=== PATIENT | male | born 1940 | race Caucasian/White ===

== ENCOUNTER → 2018-05-12 | Outpatient (CLI) | payer MEDICARE, OTHER ==
--- NOTE | 2018-05-12 13:06 | US ---
EXAMINATION TYPE: US venous doppler duplex LE DATE OF EXAM: 05/12/2018 12:52 PM COMPARISON: NONE CLINICAL HISTORY: R60.0 Localized edema. Intermittent pain left thigh. Bilateral leg edema SIDE PERFORMED: Bilateral TECHNIQUE: The lower extremity deep venous system is examined utilizing real time linear array sonog oliver with graded compression, doppler sonography and color-flow sonography. VESSELS IMAGED: External Iliac Vein (EIV) Common Femoral Vein Deep Femoral Vein Greater Saphenous Vein * Femoral Vein Popliteal Vein Small Saphenous Vein * Proximal Calf Veins (* superficial vessels) Grayscale, color doppler, spectral doppler imaging performed of the deep veins of the lower extremiti es. There is normal flow, compressibility, vascular waveforms. Right Leg: No evidence of DVT Left Leg: No evidence of DVT IMPRESSION: No sonographic evidence of deep venous thrombosis within either lower extremity.
== END ==
LOC: RADUSWWP 12:17
PROVIDERS: ATTEND Family Medicine
DX: R60.0 Localized edema (principal)
CPT/HCPCS: 93970

== ENCOUNTER → 2020-11-21 | Outpatient (CLI) | payer MEDICARE, OTHER ==
--- NOTE | 2020-11-21 16:16 | US ---
EXAMINATION TYPE: US kidneys/renal and bladder DATE OF EXAM: 11/21/2020 COMPARISON: NONE CLINICAL HISTORY: CKD Stage 4 N18.4. CKD, no symptoms EXAM MEASUREMENTS: Right Kidney: 9.9 x 4.8 x 6.1 cm Left Kidney: 10.2 x 4.4 x 5.3 cm Right Kidney: cortical thinning noted Left Kidney: cortical thinning noted Bladder: wnl Bilateral Jets seen: left . Right ureteral jet is not visualized. No hydronephrosis or shadowing renal calculi. IMPRESSION: 1. No hydronephrosis or shadowing renal calculi. 2. Bilateral cortical renal thinning. 3. Only left ureteral jet is visualized. The right ureteral jet is not visualized.
== END | disposition home or self-care (01) ==
LOC: RADUSWWP 11:45
PROVIDERS: ATTEND Internal Medicine Nephrology
DX: N18.4 Chronic kidney disease, stage 4 (severe) (principal)
CPT/HCPCS: 76770

== ENCOUNTER → 2021-09-04 | Outpatient (CLI) | payer MEDICARE, OTHER ==
--- NOTE | 2021-09-04 15:11 | XR ---
EXAMINATION TYPE: XR knee complete bilateral DATE OF EXAM: 09/04/2021 CLINICAL HISTORY: Injury one year ago with pain and numbness TECHNIQUE: Three views of the right knee are obtained. COMPARISON: None. FINDINGS: There is no acute fracture/dislocation evident in right knee. Moderate narrowing and spurr ing medial tibiofemoral compartment. Mild to moderate narrowing and mild spurring patellofemoral comp artment. Overlying soft tissue is unremarkable. IMPRESSION: As above.
--- NOTE | 2021-09-04 19:28 | XR ---
EXAMINATION TYPE: XR lumbar spine 3V DATE OF EXAM: 09/04/2021 Comparison: None Clinical History: 81-year-old male M54.16, M25.361 Findings: 5 lumbar type vertebral bodies. Hypertrophic facet arthropathy throughout the lumbar spine. Mild mult ilevel degenerative disc disease, more moderate at T12-L1. Bridging or nearly bridging anterior plate spondylosis L2-L4 levels. There is trace grade 1 retrolisthesis L3-L4 and L4-L5. Remaining alignment is maintained. Vertebral body heights are preserved. Impression: 1. Hypertrophic facet arthropathy throughout. Trace grade 1 retrolisthesis L3-L4 and L4-L5. 2. Bridging or nearly bridging anterior endplate spondylosis L2 through L4 levels. 3. Multilevel mild degenerative disc disease. No vertebral compression collapse.
== END | disposition home or self-care (01) ==
LOC: RADXRMAIN 13:55
PROVIDERS: ATTEND Family Medicine
DX: M25.861 Other specified joint disorders, right knee (principal); M25.761 Osteophyte, right knee; M47.26 Other spondylosis with radiculopathy, lumbar region; M51.16 Intervertebral disc disorders with radiculopathy, lumbar region; M43.16 Spondylolisthesis, lumbar region
CPT/HCPCS: 72100

== ENCOUNTER 2022-04-16 14:43 | Observation (INO) | payer MEDICARE, OTHER ==
[2022-04-16 14:53] VITALS: TEMP 97.9
[2022-04-16] MEDS ORDERED: SODIUM CHLORIDE 0.9% 1,000 ML IV STA (15:12)
--- NOTE | 2022-04-16 15:15 | ED ---
General Adult HPI - General Chief complaint: Dizziness Stated complaint: syncope Time Seen by Provider: 04/16/22 14:57 Source: patient, RN notes reviewed Mode of arrival: EMS Limitations: no limitations - History of Present Illness Initial comments: Dictation was produced using [employer] dictation software. please excuse any grammatical, word or spelling errors. Chief Complaint: 81-year-old male presents to emergency department after presyncope History of Present Illness: Patient is an 81-year-old diabetic male presents emergency department for episode of presyncope. Patient had x-rays ordered by his primary care doctor in order to qualify for spinal injections to be performed by pain specialist. Patient states he felt fine all day. He lay down for the x-rays. He stood up rather quickly and started to feel little lightheaded. X-ray techs allegedly witnessed the eventthat his blood pressure dropped slightly. Patient denies any loss of consciousness. He did have some episodes of nausea vomiting. Patient states that since being in emergency department he feels fine. His metabolic baseline. His caretakers at the bedside states that patient's family member tested positive for COVID-19 recently. Patient denies any history of cardiac myopathy or cardiac disease. The ROS documented in this emergency department record has been reviewed and confirmed by me. Those systems with pertinent positive or negative responses have been documented in the HPI. All other systems are other negative and/or no ncontributory. PHYSICAL EXAM: General Impression: Alert and oriented x3, not in acute distress HEENT: Normocephalic atraumatic, extra-ocular movements intact, pupils equal and reactive to light bilaterally, mucous membranes moist. Cardiovascular: Heart regular rate and rhythm Chest: Able to complete full sentences, no retractions, no tachypnea Abdomen: abdomen soft, non-tender, non-distended, no organomegaly Musculoskeletal: Pulses present and equal in all extremities, no peripheral edema Motor: no focal deficits noted Neurological: CN II-XII grossly intact, no focal motor or sensory deficits noted Skin: Intact with no visualized rashes Psych: Normal affect and mood ED course: 81-year-old male presents emergency department for presyncopal episode. Vital signs upon arrival are within acceptable limits. Patient does however have a soft blood pressure for someone who has hypertension and takes multiple antihypertensive medications. He is unremarkable. Laboratory evaluation obtained. CBC unremarkable. Metabolic panel shows creatinine 3.7 with a BUN of 71. Clinical presentation concerning for acute kidney injury for panel viral PCR is negative. Patient observed in emergency Department with improvement of blood pressure. Disposition options were discussed with patient. Patient is agreeable for observation admission for IV fluids. Patient's acute kidney injury, presyncope and hypotension likely secondary to dehydration. Patient's son at the bedside states that patient has poor oral intake since the passing of their family member. EKG interpretation: Ventricular rate 52, sinus bradycardia, OK interval 217, QS 119, QTC 39. No OK prolongation, no QTC prolongation, no ST or T-wave changes noted. Overall, this EKG is unremarkable - Related Data Home Medications Medication Instructions Recorded Confirmed Labetalol [Trandate] 200 mg PO BID 01/22/18 04/16/22 Levothyroxine Sodium [Tirosint] 125 mcg PO DAILY 01/22/18 04/16/22 Omeprazole 20 mg PO DAILY 01/22/18 04/16/22 Torsemide [Demadex] 20 mg PO BID 01/22/18 04/16/22 calcitrioL [Rocaltrol] 0.25 mcg PO MOTUWETHFRSA 01/22/18 04/16/22 Aspirin EC [Ecotrin Low Dose] 81 mg PO DAILY 04/16/22 04/16/22 Imiquimod [Aldara] 1 packet TOPICAL Q72H 04/16/22 04/16/22 Insulin Aspart [NovoLOG Flexpen] 3 units SQ TID-W/MEALS PRN 04/16/22 04/16/22 Insulin Aspart [NovoLOG Flexpen] See Protocol SQ TID-W/MEALS PRN 04/16/22 04/16/22 Insulin Glargine,Hum.rec.anlog 10 units SQ DAILY PRN 04/16/22 04/16/22 [Lantus Solostar Pen] Latanoprost [Latanoprost 0.005%] 1 drop BOTH EYES HS 04/16/22 04/16/22 Multivitamins, Thera [Multivitamin 1 tab PO DAILY 04/16/22 04/16/22 (formulary)] NIFEdipine XL [Procardia XL] 60 mg PO DAILY 04/16/22 04/16/22 [place]-3/Dha/Epa/Fish Oil [Fish Oil 1 cap PO DAILY 04/16/22 04/16/22 1,000 mg Softgel] Sodium Bicarbonate Tab 650 mg PO TID 04/16/22 04/16/22 Terazosin HCl 10 mg PO HS 04/16/22 04/16/22 lisinopriL [Zestril] 5 mg PO BID 04/16/22 04/16/22 Allergies Allergy/AdvReac Type Severity Reaction Status Date / Time No Known Allergies Allergy Verified 04/16/22 16:17 Review of Systems ROS Statement: Those systems with pertinent positive or pertinent negative responses have been documented in the HPI. ROS Other: All systems not noted in ROS Statement are negative. Past Medical History Past Medical History: Diabetes Mellitus, GERD/Reflux, Hyperlipidemia, Hypertension, Osteoarthritis (OA), Prostate Disorder, Renal Disease Additional Past Medical History / Comment(s): Thrombocytopenic disorder History of Any Multi-Drug Resistant Organisms: None Reported Additional Past Surgical History / Comment(s): skin biopsy left shoulder Past Anesthesia/Blood Transfusion Reactions: No Reported Reaction Past Psychological History: No Psychological Hx Reported Smoking Status: Former smoker Past Alcohol Use History: Occasional Past Drug Use History: None Reported General Exam Limitations: no limitations Course Vital Signs 04/16/22 04/16/22 14:45 16:02 Temperature 97.9 F Pulse Rate 58 L 59 L Respiratory 18 18 Rate Blood Pressure 92/49 124/49 O2 Sat by Pulse 98 96 Oximetry Medical Decision Making - Lab Data Result diagrams: 04/16/22 15:17 04/16/22 15:17 Lab Results 04/16/22 04/16/22 04/16/22 Range/Units 15:17 15:17 15:28 WBC 6.0 (3.8-10.6) k/uL RBC 3.97 L (4.30-5.90) m/uL Hgb 12.9 L (13.0-17.5) gm/dL Hct 36.9 L (39.0-53.0) % MCV 92.8 (80.0-100.0) fL MCH 32.4 (25.0-35.0) pg MCHC 34.9 (31.0-37.0) g/dL RDW 13.8 (11.5-15.5) % Plt Count 101 L (150-450) k/uL MPV 9.4 Neutrophils % 76 % Lymphocytes % 13 % Monocytes % 5 % Eosinophils % 5 % Basophils % 0 % Neutrophils # 4.6 (1.3-7.7) k/uL Lymphocytes # 0.8 L (1.0-4.8) k/uL Monocytes # 0.3 (0-1.0) k/uL Eosinophils # 0.3 (0-0.7) k/uL Basophils # 0.0 (0-0.2) k/uL Sodium 141 (137-145) mmol/L Potassium 5.0 (3.5-5.1) mmol/L Chloride 102 (98-107) mmol/L Carbon Dioxide 23 (22-30) mmol/L Anion Gap 16 mmol/L BUN 71 H (9-20) mg/dL Creatinine 3.27 H (0.66-1.25) mg/dL Est GFR (CKD-EPI)AfAm 20 (>60 ml/min/1.73 sqM) Est GFR (CKD-EPI)NonAf 17 (>60 ml/min/1.73 sqM) Glucose 138 H (74-99) mg/dL Calcium 8.5 (8.4-10.2) mg/dL Influenza Type A (PCR) Not Detected (Not Detectd) Influenza Type B (PCR) Not Detected (Not Detectd) RSV (PCR) Not Detected (Not Detectd) SARS-CoV-2 (PCR) Not Detected (Not Detectd) Disposition Clinical Impression: Dehydration, Hypotension, OSCAR (acute kidney injury) Disposition: ADMITTED IP TO THIS [facility] Condition: Fair Referrals: Toni Sequeira MD [Primary Care Provider] - 1-2 days Decision Time: 17:08
[2022-04-16 15:21] LABS: Basophils % (A) 0 %; Eosinophils # (A) 0.3 k/uL (0-0.7); Eosinophils % (A) 5 %; HCT 36.9 % (39.0-53.0); HGB 12.9 gm/dL (13.0-17.5); Lymphocytes # (A) 0.8 k/uL (1.0-4.8); Lymphocytes % (A) 13 %; MCH 32.4 pg (25.0-35.0); MCHC 34.9 g/dL (31.0-37.0); MCV 92.8 fL (80.0-100.0); Mean Platelet Volume 9.4; Monocytes # (A) 0.3 k/uL (0-1.0); Monocytes % (A) 5 %; Neutrophils # (A) 4.6 k/uL (1.3-7.7); Neutrophils % (A) 76 %; Platelet Count 101 k/uL (150-450); RBC 3.97 m/uL (4.30-5.90); RDW 13.8 % (11.5-15.5)
[2022-04-16 15:30] LABS: Calcium 8.5 mg/dL (8.4-10.2)
[2022-04-16] MEDS ORDERED: NALOXONE 0.4 MG/ML 1 ML VIAL IV PRN (17:05)
[2022-04-16] MEDS: SODIUM CHLORIDE 0.9% 1,000 ML IV SCH (19:34)
[2022-04-16] MEDS ORDERED: ACETAMINOPHEN TAB 325 MG TAB PO PRN (21:16)
[2022-04-16] MEDS ORDERED: LATANOPROST 0.005% OPHTH DROPS 2.5 ML BTL BOTH EYES SCH (22:00)
[2022-04-16] MEDS ORDERED: SODIUM BICARBONATE TAB 650 MG TAB PO SCH (22:00)
[2022-04-16] MEDS ORDERED: DOXAZOSIN 4 MG TAB PO SCH (23:00)
[2022-04-17] MEDS ORDERED: LEVOTHYROXINE 125 MCG TAB PO SCH (06:30)
[2022-04-17] MEDS ORDERED: DEXTROSE 50% SYRINGE 50 ML IVP PRN ×2 (07:08)
[2022-04-17] MEDS ORDERED: INSULIN DETEMIR (LEVEMIR) 100 UNIT/ML SYR SQ PRN (07:08)
[2022-04-17] MEDS ORDERED: INSULIN ASPART (NovoLOG) 100 UNIT/ML VIAL SQ SCH (07:30)
[2022-04-17] MEDS: SODIUM CHLORIDE 0.9% 1,000 ML IV SCH (07:37)
[2022-04-17 08:29] VITALS: BP 155/81; PULSE 82; RESP 18
[2022-04-17] MEDS ORDERED: ASPIRIN 81 MG PO SCH (09:00)
[2022-04-17] MEDS ORDERED: FAMOTIDINE 20 MG TAB PO SCH (09:00)
[2022-04-17] MEDS ORDERED: MULTIVITAMINS, THERA 1 EACH TAB PO SCH (09:00)
[2022-04-17 11:45] LABS: African American GFR (CKD) 23.6 (60.0-200.0); Anion Gap 12.1 mmol/L (10.00-18.00); BUN/Creat Ratio 22.21 Ratio (12.00-20.00); Blood Urea Nitrogen 62.2 mg/dL (9.0-27.0); Calcium 8.1 mg/dL (8.7-10.3); Carbon Dioxide 24.9 mmol/L (20.0-27.5); Non-African American GFR(CKD) 20.4 (60.0-200.0); Potassium 4.7 mmol/L (3.5-5.5)
--- NOTE | 2022-04-17 16:48 | P.DS ---
Providers Date of admission: 04/16/22 17:05 Attending physician: Kenan Prieto Primary care physician: Toni Sequeira [facility] Course: Patient admitted yesterday evening to medical team. Remained in ER as a hold for medical bed. Notified at 0630 04/17/2022 that patient wanted to leave AMA. Attempted to call nurse. No answer. Called nurse back and notified that patient left AMA at 0820 prior to being evaluated by medical team. Patient was admitted for acute kidney injury which appears to have improved with IV fluids overnight. Creatinine 2.6 on discharge per medical record. The impression and plan of care has been dictated by Toshia Mayfield Nurse Practitioner as directed. Dr. Nava MD I have performed a history and physical examination and medical decision making of this patient, discussed the same with the dictator, and agree with the dictators assessment and plan as written, documented as a scribe. Based on total visit time, I have performed more than 50% of this visit. Patient Condition at Discharge: Undetermined Plan - Discharge Summary New Discharge Prescriptions: No Action Torsemide [Demadex] 20 mg PO BID Omeprazole 20 mg PO DAILY Levothyroxine Sodium [Tirosint] 125 mcg PO DAILY Labetalol [Trandate] 200 mg PO BID calcitrioL [Rocaltrol] 0.25 mcg PO MOTUWETHFRSA Multivitamins, Thera [Multivitamin (formulary)] 1 tab PO DAILY Insulin Glargine,Hum.rec.anlog [Lantus Solostar Pen] 10 units SQ DAILY PRN PRN Reason: high blood sugar Terazosin HCl 10 mg PO HS Insulin Aspart [NovoLOG Flexpen] 3 units SQ TID-W/MEALS PRN PRN Reason: high blood sugar NIFEdipine XL [Procardia XL] 60 mg PO DAILY lisinopriL [Zestril] 5 mg PO BID Latanoprost [Latanoprost 0.005%] 1 drop BOTH EYES HS Aspirin EC [Ecotrin Low Dose] 81 mg PO DAILY Imiquimod [Aldara] 1 packet TOPICAL Q72H [place]-3/Dha/Epa/Fish Oil [Fish Oil 1,000 mg Softgel] 1 cap PO DAILY Insulin Aspart [NovoLOG Flexpen] See Protocol SQ TID-W/MEALS PRN PRN Reason: high blood sugar Sodium Bicarbonate Tab 650 mg PO TID Discharge Medication List Labetalol [Trandate] 200 mg PO BID 01/22/18 [History] Levothyroxine Sodium [Tirosint] 125 mcg PO DAILY 01/22/18 [History] Omeprazole 20 mg PO DAILY 01/22/18 [History] Torsemide [Demadex] 20 mg PO BID 01/22/18 [History] calcitrioL [Rocaltrol] 0.25 mcg PO MOTUWETHFRSA 01/22/18 [History] Aspirin EC [Ecotrin Low Dose] 81 mg PO DAILY 04/16/22 [History] Imiquimod [Aldara] 1 packet TOPICAL Q72H 04/16/22 [History] Insulin Aspart [NovoLOG Flexpen] 3 units SQ TID-W/MEALS PRN 04/16/22 [History] Insulin Aspart [NovoLOG Flexpen] See Protocol SQ TID-W/MEALS PRN 04/16/22 [History] Insulin Glargine,Hum.rec.anlog [Lantus Solostar Pen] 10 units SQ DAILY PRN 04/16/22 [History] Latanoprost [Latanoprost 0.005%] 1 drop BOTH EYES HS 04/16/22 [History] Multivitamins, Thera [Multivitamin (formulary)] 1 tab PO DAILY 04/16/22 [History] NIFEdipine XL [Procardia XL] 60 mg PO DAILY 04/16/22 [History] [place]-3/Dha/Epa/Fish Oil [Fish Oil 1,000 mg Softgel] 1 cap PO DAILY 04/16/22 [History] Sodium Bicarbonate Tab 650 mg PO TID 04/16/22 [History] Terazosin HCl 10 mg PO HS 04/16/22 [History] lisinopriL [Zestril] 5 mg PO BID 04/16/22 [History] Follow up Appointment(s)/Referral(s): Toni Sequeira MD [Primary Care Provider] - 1-2 days Discharge Disposition: Left Against Medical Advice
== END 2022-04-17 10:22 | disposition left against medical advice (07) ==
LOC: EC 14:43 → 6NMEDSUR 17:05
PROVIDERS: ADMIT Hospitalist; ATTEND Hospitalist
DX: R55 Syncope and collapse (principal); Z53.29 Procedure and treatment not carried out because of patient's decision for other reasons; N17.9 Acute kidney failure, unspecified; E86.0 Dehydration; I95.9 Hypotension, unspecified; I10 Essential (primary) hypertension; E11.9 Type 2 diabetes mellitus without complications; E78.5 Hyperlipidemia, unspecified; K21.9 Gastro-esophageal reflux disease without esophagitis; Z87.891 Personal history of nicotine dependence; Z20.822 Contact with and (suspected) exposure to COVID-19; Z79.890 Hormone replacement therapy; Z79.899 Other long term (current) drug therapy; Z79.82 Long term (current) use of aspirin; Z79.4 Long term (current) use of insulin
CPT/HCPCS: 96360; 99285; 36415; 93005; 80048 ×2; 85025; 83036; 87636; G0378 ×2

== ENCOUNTER → 2022-04-16 | Outpatient (CLI) | payer MEDICARE, OTHER ==
--- NOTE | 2022-04-16 15:00 | XR ---
EXAMINATION TYPE: XR cervical spine comp DATE OF EXAM: 04/16/2022 2:45 PM INDICATION: Patient age:Male; 81 years old; Reason for study: M51.35 Other intervertebral disc degeneration; [facility]. COMPARISON: None TECHNIQUE: The cervical spine was imaged in 4 projections. Frontal, lateral, odontoid and bilateral o blique. FINDINGS: The osseous structures show normal alignment without evidence of an acute fracture. There are osteoph ytes noted throughout the cervical spine on the anterior and lateral aspects of the vertebral bodies. 2 level intervertebral disc space narrowing. Multilevel facet arthropathy. Pedicles are intact. So ft tissues are within normal limits. The odontoid appears intact. IMPRESSION: 1. No fracture or dislocation. 2. Moderate degenerative disc disease changes of the cervical spine.
--- NOTE | 2022-04-16 15:03 | XR ---
EXAMINATION TYPE: XR thoracic spine complete DATE OF EXAM: 04/16/2022 2:45 PM INDICATION: Patient age:Male; 81 years old; Reason for study: M51.35 Other intervertebral disc degeneration; [facility]. COMPARISON: None TECHNIQUE: 3 views of the thoracic spine in frontal, lateral, swimmer's projections. FINDINGS: No evidence of acute fracture. Minimal dextrocurvature of the upper thoracic spine. No vertebral bod y height loss. Multilevel degenerative changes of the visualized spine with disc, endplate sclerosis, and anterior osteophytosis. No spondylolisthesis. IMPRESSION: 1. No acute osseous pathology. 2. Mild degenerative disc disease.
--- NOTE | 2022-04-16 15:13 | XR ---
EXAMINATION TYPE: XR lumbar spine 2 or 3V DATE OF EXAM: 04/16/2022 CLINICAL HISTORY: M51.35 Other intervertebral disc degeneration TECHNIQUE: Three views of the lumbar spine are submitted. COMPARISON: Lumbar spine radiograph 09/04/2021. FINDINGS: There are 5 lumbar type vertebral bodies identified. No acute fracture or dislocation. Vertebral body heights are maintained. Mild multilevel degenerative disc disease. This again most pronounced at T12 -L1. Multilevel facet arthropathy. Similar anterior bridging osteophyte at L2-L4 levels. Trace retrol isthesis of L3 on L4 and L4-L5. The overlying soft tissue appears unremarkable. Vascular sclerosis. IMPRESSION: 1. No acute fracture or dislocation is seen in the lumbar spine. 2. Mild multilevel degenerative disc disease. 3. Trace retrolisthesis of L3 on L4 and L4-L5.
== END | disposition home or self-care (01) ==
LOC: RADXRMAIN 13:20
PROVIDERS: ATTEND Family Medicine
DX: M50.30 Other cervical disc degeneration, unspecified cervical region (principal); M51.34 Other intervertebral disc degeneration, thoracic region; M51.36 Other intervertebral disc degeneration, lumbar region; M43.16 Spondylolisthesis, lumbar region
CPT/HCPCS: 72050; 72072; 72100